=== PATIENT | female | born 1995 | race Caucasian/White ===

== ENCOUNTER 2022-02-07 18:43 | Emergency (ER) | payer OTHER ==
[~2022-02-07] VITALS: Ht 177.8 cm; Wt 77.1 kg
[2022-02-07] MEDS ORDERED: PRENATAL + DHA1 EAC1 PO (19:34)
[2022-02-07] MEDS ORDERED: SYNTHROID75 MCG PO (19:34)
[2022-02-07] MEDS ORDERED: PRENA1 CHEW TA1.4 MG PO (20:56)
== END 2022-02-07 21:03 | disposition home or self-care (01) ==
LOC: ER 18:43
DX: O20.9 Hemorrhage in early pregnancy, unspecified (principal); Z3A.01 Less than 8 weeks gestation of pregnancy; Z88.6 Allergy status to analgesic agent